=== PATIENT | male | born 1990 | race Caucasian/White ===

== ENCOUNTER 2017-04-30 17:43 | Emergency (ER) | payer OTHER ==
[2017-04-30] MEDS: IBUPROFEN 600 MG TAB PO (18:30)
== END 2017-04-30 18:25 | disposition home or self-care (01) ==
LOC: E/R 18:25
DX: S16.1XXA Strain of muscle, fascia and tendon at neck level, initial encounter (principal); V49.50XA Passenger injured in collision with unspecified motor vehicles in traffic accident, initial encounter
CPT/HCPCS: 99283